=== PATIENT | female | born 1975 | race Caucasian/White ===

== ENCOUNTER 2016-10-23 17:06 | Emergency (ER) | payer OTHER ==
[~2016-10-23] VITALS: Ht 147.3 cm; Wt 59.1 kg
[2016-10-23] MEDS ORDERED: NEURONTIN100 MG/CAP PO (18:05)
[2016-10-23] MEDS ORDERED: MAGNESIUM100 MG PO (18:05)
[2016-10-23] MEDS ORDERED: VITAMIN D 50,1.25 MG PO (18:07)
[2016-10-23] MEDS ORDERED: PROFERRIN ES12 MG PO (18:07)
[2016-10-23] MEDS ORDERED: VITAMIN D1000 IU PO (18:07)
[2016-10-23] MEDS ORDERED: VTAMINC250TA (18:07)
[2016-10-23 19:20] VITALS: BP 129/69; PULSE 79
== END 2016-10-23 19:20 | disposition home or self-care (01) ==
LOC: COL.ER 17:06
DX: S09.90XA Unspecified injury of head, initial encounter (principal); S50.11XA Contusion of right forearm, initial encounter; S16.1XXA Strain of muscle, fascia and tendon at neck level, initial encounter; W10.9XXA Fall (on) (from) unspecified stairs and steps, initial encounter; Y92.008 Other place in unspecified non-institutional (private) residence as the place of occurrence of the external cause; Z91.81 History of falling; R29.91 Unspecified symptoms and signs involving the musculoskeletal system; R29.90 Unspecified symptoms and signs involving the nervous system

== ENCOUNTER 2017-08-15 00:49 | Observation (INO) | payer OTHER ==
[~2017-08-15] VITALS: Ht 149.9 cm; Wt 62.0 kg
[~2017-08-15 00:49] MED LIST: FLEXERIL 1010 MG/TAB PO; FLEXERIL5 MG; MAGNESIUM100 MG PO; NEURONTIN100 MG/CAP PO; NORCO 325 MG-51 TAB; PROFERRIN ES12 MG PO; VITAMIN D 50,1.25 MG PO; VITAMIN D1000 IU PO; VTAMINC250TA
[2017-08-15 01:54] LABS: BASO % 0.4 % (0.0-2.0); EOS # 0.1 (0.0-0.7); EOS % 1.5 % (0-4.0); GRAN # 6.3 (1.4-6.5); GRAN % 73.5 % (42.2-75.2); HEMATOCRIT 38.2 % (37.0-47.0); HEMOGLOBIN 13.1 g/dl (12.5-16.0); LYMPH # 1.3 (1.2-3.4); LYMPH % 15.5 % (20.0-51.0); MEAN CELL VOLUME 93 fl (80.0-100.0); MEAN CORPUSCULAR HEMOGLOBIN 32 pg (27.0-31.0); MEAN CORPUSCULAR HGB CONC 34 g/dl (33.0-37.0); MEAN PLATELET VOLUME 9.4 fl (7.4-10.4); MONO # 0.7 (0.1-0.6); MONO % 8.6 % (1.7-9.3); PLATELET COUNT 301 K/mm3 (130-400); REDCELL DISTRIBUTION WIDTH-CV 12.7 % (11.5-14.5)
[2017-08-15 02:08] LABS: ALANINE AMINOTRANSFERASE 37 U/L (9-52); ALBUMIN 3.9 gm/dL (3.5-5.0); ALKALINE PHOSPHATASE 74 U/L (50-136); ANION GAP 12 mmol/L (7-16); AST,SGOT 25 U/L (15-37); BILIRUBIN,TOTAL 0.4 mg/dL (0.0-1.0); BLOOD UREA NITROGEN 18 mg/dL (7-17); CALCIUM 8.9 mg/dL (8.4-10.2); CARBON DIOXIDE 22 mmol/L (22-30); CHLORIDE 106 mmol/L (98-107); CREATININE, serum 0.68 mg/dL (0.52-1.25); GLUCOSE 114 mg/dL (74-106); POTASSIUM 3.8 mmol/L (3.4-5.0); SODIUM 141 mmol/L (137-145); TOTAL PROTEIN 7.6 gm/dL (6.4-8.2)
[2017-08-15 02:21] LABS: PROLACTIN 64.1 ng/mL (3.0-18.6)
[2017-08-15 02:22] LABS: C-REACTIVE PROTEIN < 0.5 mg/dL (0.0-0.9)
[2017-08-15 03:49] LABS: COLLECTION METHOD CLEAN CATCH
[2017-08-15 04:00] LABS: MUCOUS Present /lpf; PH 6 (5-8); SQUAMOUS EPITHELIAL 0-2 /hpf; URINE APPEARANCE Hazy; URINE BACTERIA Moderate /hpf; URINE BILIRUBIN Negative (NEGATIVE); URINE BLOOD 1+ (NEGATIVE); URINE COLOR Yellow; URINE GLUCOSE Negative (NEGATIVE); URINE KETONE Negative (NEGATIVE); URINE LEUKOCYTE ESTERASE Trace (NEGATIVE); URINE NITRATE Positive (NEGATIVE); URINE PROTEIN(semi-quant) Negative (NEGATIVE); URINE RBC 0-2 /hpf; URINE UROBILINOGEN Negative (NEGATIVE)
[2017-08-15] MEDS ORDERED: NORCO 325 MG-51 TAB PO (04:01)
[2017-08-15 06:32] VITALS: BP 116/58; PULSE 88; TEMP 98.2
[2017-08-15 07:40] LABS: PHOSPHOROUS 2.9 mg/dL (2.5-4.5)
[2017-08-15 08:00] VITALS: BP 112/60; PULSE 77; TEMP 98.1
[2017-08-15 08:10] LABS: TRICYCLIC ANTIDEPRESS URINE NEGATIVE
[2017-08-15 08:11] LABS: TSH w REFLEX 2.8 uIU/mL (0.465-4.680)
[2017-08-15 12:00] VITALS: BP 112/70; PULSE 86; TEMP 97.1
[2017-08-15 16:00] VITALS: BP 122/63; PULSE 78; TEMP 98
[2017-08-15 18:49] LABS: FOLATE (FOLIC ACID) 11.5 ng/mL (7.0-31.4)
[2017-08-15 20:00] VITALS: BP 91/68; PULSE 71; TEMP 98.2
[2017-08-16] VITALS: BP 92/52; PULSE 60; TEMP 98.5
[2017-08-16 04:00] VITALS: BP 114/65; PULSE 62
[2017-08-16 05:47] LABS: BASO % 0.3 % (0.0-2.0); EOS # 0.3 (0.0-0.7); EOS % 4.5 % (0-4.0); GRAN # 3.4 (1.4-6.5); GRAN % 55.5 % (42.2-75.2); HEMATOCRIT 37.2 % (37.0-47.0); HEMOGLOBIN 12.6 g/dl (12.5-16.0); LYMPH # 1.9 (1.2-3.4); LYMPH % 30.9 % (20.0-51.0); MEAN CELL VOLUME 94 fl (80.0-100.0); MEAN CORPUSCULAR HEMOGLOBIN 32 pg (27.0-31.0); MEAN CORPUSCULAR HGB CONC 34 g/dl (33.0-37.0); MEAN PLATELET VOLUME 9.5 fl (7.4-10.4); MONO # 0.5 (0.1-0.6); MONO % 8.6 % (1.7-9.3); PLATELET COUNT 267 K/mm3 (130-400); RED BLOOD COUNT 3.96 M/mm3 (4.10-5.30); REDCELL DISTRIBUTION WIDTH-CV 12.8 % (11.5-14.5)
[2017-08-16 06:01] LABS: ALBUMIN 3.3 gm/dL (3.5-5.0); BILIRUBIN,TOTAL 0.4 mg/dL (0.0-1.0); CALCIUM 8.5 mg/dL (8.4-10.2); CREATININE, serum 0.67 mg/dL (0.52-1.25); POTASSIUM 4.4 mmol/L (3.4-5.0); TOTAL PROTEIN 6.4 gm/dL (6.4-8.2)
[2017-08-16 07:51] VITALS: BP 106/59; PULSE 61; TEMP 97.9
[2017-08-16] MEDS ORDERED: KEPPRA 500MG500 MG PO (09:20)
[2017-08-16 11:42] VITALS: BP 104/42; PULSE 79; TEMP 97.6
== END 2017-08-16 14:25 | disposition home or self-care (01) ==
LOC: COL.ER 00:49 → ICU 03:29 → MEDICAL 03:29 → ICU 03:30 → SURG 08-16 05:52
PROVIDERS: Emergency Medicine; Internal Medicine; Nurse Practitioner Family
DX: R55 Syncope and collapse (principal); Q61.3 Polycystic kidney, unspecified; R47.01 Aphasia; N39.0 Urinary tract infection, site not specified; G89.28 Other chronic postprocedural pain; R07.9 Chest pain, unspecified; Z88.6 Allergy status to analgesic agent; Z88.8 Allergy status to other drugs, medicaments and biological substances
CPT/HCPCS: 99223-AI; A9585; G0378; G8978-GP; G8979-GP; G8987-GO; G8988-GO; G9162-GN; G9163-GN; J0696; J1953; J2060; J7030

== ENCOUNTER 2017-08-19 06:45 | Observation (INO) | payer OTHER ==
[~2017-08-19] VITALS: Ht 165.1 cm; Wt 60.7 kg
[~2017-08-19 06:45] MED LIST changes: +KEPPRA 500MG500 MG PO; +NORCO 325 MG-51 TAB PO
[2017-08-19 18:26] VITALS: BP 113/68; PULSE 65; TEMP 97.8
[2017-08-19 19:45] VITALS: BP 107/50; PULSE 81; TEMP 98.6
[2017-08-19 23:24] VITALS: BP 105/44; PULSE 74; TEMP 98.6
[2017-08-19 23:57] VITALS: BP 105/43; PULSE 74; TEMP 98.6
[2017-08-20 02:26] VITALS: BP 110/61; PULSE 88; TEMP 98.6
[2017-08-20 06:08] LABS: BASO % 0.3 % (0.0-2.0); EOS # 0.3 (0.0-0.7); EOS % 4.1 % (0-4.0); GRAN # 3.7 (1.4-6.5); GRAN % 51.2 % (42.2-75.2); HEMATOCRIT 38.3 % (37.0-47.0); HEMOGLOBIN 13.2 g/dl (12.5-16.0); LYMPH # 2.5 (1.2-3.4); LYMPH % 34.8 % (20.0-51.0); MEAN CELL VOLUME 94 fl (80.0-100.0); MEAN CORPUSCULAR HEMOGLOBIN 32 pg (27.0-31.0); MEAN CORPUSCULAR HGB CONC 35 g/dl (33.0-37.0); MEAN PLATELET VOLUME 9.8 fl (7.4-10.4); MONO # 0.7 (0.1-0.6); MONO % 9.5 % (1.7-9.3); PLATELET COUNT 281 K/mm3 (130-400); RED BLOOD COUNT 4.08 M/mm3 (4.10-5.30); REDCELL DISTRIBUTION WIDTH-CV 12.6 % (11.5-14.5)
[2017-08-20 06:15] LABS: CALCIUM 8.7 mg/dL (8.4-10.2); CREATININE, serum 0.63 mg/dL (0.52-1.25)
[2017-08-20 07:43] VITALS: BP 105/52; PULSE 63; TEMP 97.8
== END 2017-08-20 16:58 | disposition home or self-care (01) ==
LOC: MEDICAL 06:45
PROVIDERS: Nurse Practitioner Family
DX: R07.9 Chest pain, unspecified (principal); R06.02 Shortness of breath; R42 Dizziness and giddiness; Q61.3 Polycystic kidney, unspecified; G89.29 Other chronic pain; M54.9 Dorsalgia, unspecified; G62.9 Polyneuropathy, unspecified; K59.00 Constipation, unspecified; Z88.3 Allergy status to other anti-infective agents; Z88.8 Allergy status to other drugs, medicaments and biological substances; Z82.3 Family history of stroke; Z82.49 Family history of ischemic heart disease and other diseases of the circulatory system
CPT/HCPCS: A9585; G0378; G0379; G8978-GP; G8979-GP; G8987-GO; G8988-GO; J1650

== ENCOUNTER 2018-07-05 23:47 | Emergency (ER) | payer OTHER ==
[~2018-07-05] VITALS: Ht 147.3 cm; Wt 65.9 kg
[2018-07-05 23:57] VITALS: TEMP 98.7
[2018-07-06 02:39] LABS: BASO % 0.3 % (0.0-2.0); EOS # 0.1 (0.0-0.7); EOS % 1.2 % (0-4.0); GRAN # 5.6 (1.4-6.5); GRAN % 61.7 % (42.2-75.2); HEMATOCRIT 38.9 % (37.0-47.0); HEMOGLOBIN 13.2 g/dl (12.5-16.0); LYMPH # 2.4 (1.2-3.4); LYMPH % 26.4 % (20.0-51.0); MEAN CELL VOLUME 93 fl (80.0-100.0); MEAN CORPUSCULAR HEMOGLOBIN 32 pg (27.0-31.0); MEAN CORPUSCULAR HGB CONC 34 g/dl (33.0-37.0); MEAN PLATELET VOLUME 10.4 fl (7.4-10.4); MONO # 0.9 (0.1-0.6); MONO % 10.2 % (1.7-9.3); PLATELET COUNT 288 K/mm3 (130-400); RED BLOOD COUNT 4.19 M/mm3 (4.10-5.30); REDCELL DISTRIBUTION WIDTH-CV 12.7 % (11.5-14.5)
[2018-07-06 02:46] LABS: ALBUMIN 3.9 gm/dL (3.5-5.0); BILIRUBIN,TOTAL 0.3 mg/dL (0.0-1.0); CALCIUM 9.2 mg/dL (8.4-10.2); CREATININE, serum 0.69 mg/dL (0.52-1.25); POTASSIUM 4.1 mmol/L (3.4-5.0); TOTAL PROTEIN 7.1 gm/dL (6.4-8.2)
[2018-07-06 03:32] VITALS: BP 114/72; PULSE 87
== END 2018-07-06 03:32 | disposition home or self-care (01) ==
LOC: COL.ER 23:47
PROVIDERS: Emergency Medicine
DX: R20.2 Paresthesia of skin (principal); Z98.890 Other specified postprocedural states

== ENCOUNTER 2018-11-13 23:37 | Emergency (ER) | payer OTHER ==
[2018-11-13 23:44] VITALS: TEMP 97.6
[2018-11-13 23:57] LABS: BASO % 0.4 % (0.0-2.0); EOS # 0.1 (0.0-0.7); EOS % 1.3 % (0-4.0); GRAN # 4.2 (1.4-6.5); GRAN % 53.8 % (42.2-75.2); HEMATOCRIT 40.9 % (37.0-47.0); HEMOGLOBIN 13.9 g/dl (12.5-16.0); LYMPH # 2.8 (1.2-3.4); LYMPH % 35.4 % (20.0-51.0); MEAN CELL VOLUME 95 fl (80.0-100.0); MEAN CORPUSCULAR HEMOGLOBIN 32 pg (27.0-31.0); MEAN CORPUSCULAR HGB CONC 34 g/dl (33.0-37.0); MEAN PLATELET VOLUME 9.7 fl (7.4-10.4); MONO # 0.7 (0.1-0.6); MONO % 8.8 % (1.7-9.3); PLATELET COUNT 303 K/mm3 (130-400); RED BLOOD COUNT 4.33 M/mm3 (4.10-5.30); REDCELL DISTRIBUTION WIDTH-CV 12.3 % (11.5-14.5)
[2018-11-14 00:01] LABS: INR 0.9 (0.8-3.0); PROTHROMBIN TIME 10.9 SECONDS (9.7-12.8)
[2018-11-14 00:27] LABS: D-DIMER < 200.00 ng/mLDDu (200-230)
[2018-11-14 00:36] LABS: ALANINE AMINOTRANSFERASE 12 U/L (9-52); ALBUMIN 4.1 gm/dL (3.5-5.0); ALKALINE PHOSPHATASE 69 U/L (50-136); ANION GAP 10 mmol/L (7-16); AST,SGOT 24 U/L (15-37); BILIRUBIN,TOTAL 0.3 mg/dL (0.0-1.0); BLOOD UREA NITROGEN 14 mg/dL (7-17); CALCIUM 9.3 mg/dL (8.4-10.2); CARBON DIOXIDE 24 mmol/L (22-30); CHLORIDE 107 mmol/L (98-107); CREATININE, serum 0.73 (0.52-1.25); GLUCOSE 87 mg/dL (74-106); POTASSIUM 3.9 mmol/L (3.4-5.0); SODIUM 142 mmol/L (137-145); TOTAL PROTEIN 7.6 gm/dL (6.4-8.2)
[2018-11-14 00:49] LABS: TROPONIN-I < 0.012 ng/mL (0.000-0.035)
[2018-11-14 03:25] VITALS: BP 93/66; PULSE 75
== END 2018-11-14 03:25 | disposition home or self-care (01) ==
LOC: COL.ER 23:37
PROVIDERS: Emergency Medicine
DX: R07.89 Other chest pain (principal); M79.7 Fibromyalgia; Z98.890 Other specified postprocedural states

== ENCOUNTER → 2018-12-09 | Outpatient (CLI) | payer OTHER | LOC: COL.CARD 10:47 | DX: G31.84 Mild cognitive impairment of uncertain or unknown etiology (principal); G43.909 Migraine, unspecified, not intractable, without status migrainosus ==